=== PATIENT | male | born 1985 | race Hispanic/Latino ===

== ENCOUNTER 2017-10-31 12:48 | Emergency (ER) | payer BC ==
[~2017-10-31] VITALS: Ht 167.6 cm; Wt 102.1 kg
[2017-10-31] MEDS ORDERED: KETOROLAC TROMETHAMINE 60 MG/2 ML VIAL IM ONE (14:15)
== END 2017-10-31 18:01 | disposition home or self-care (01) ==
LOC: ER 12:48
DX: S29.011A Strain of muscle and tendon of front wall of thorax, initial encounter (principal); Y99.0 Civilian activity done for income or pay
CPT/HCPCS: 99282; J1885